=== PATIENT | female | born 1970 | race Caucasian/White ===

== ENCOUNTER 2019-04-02 01:01 | Outpatient (CLI) | payer MEDICAID, SELFPAY ==
--- NOTE | 2019-04-02 14:32 | DI.US_ITS ---
EXAM: US PELVIS AND TRANSVAGINAL CLINICAL HISTORY: HX FIBROIDS UNKNOWN SIZE, PLEASE DETERMINE LOCATION AND SIZE, INCREASE IN URINARY INCONTINENCE TECHNIQUE: Ultrasound performed using standard protocol. Transabdominal and transvaginal exams wer e performed. COMPARISON: No exams were available for comparison FINDINGS: The transabdominal images are limited by an empty bladder. The uterus measures 9.2 x 5 x 5 cm. Ther e is a 2.6 centimeter fibroid seen posteriorly in the myometrium. There is a 2.2 centimeter fibroid seen anteriorly in the myometrium. An IUD is noted within the endometrial cavity and appears normall y positioned. There is a 1.3 centimeter in maximal dimension rounded area within the endometrium, wh ich could represent an endometrial polyp versus submucosal fibroid. The ovaries are unremarkable. N o hydronephrosis is seen. There is no evidence of free fluid. IMPRESSION: IUD. Question of 1.3 centimeter endometrial polyp versus submucosal fibroid. Two other myometrial f ibroids are seen.
== END 2019-04-02 01:21 ==
PROVIDERS: PCP Nurse Practitioner Family; Visit Provider Nurse Practitioner Women's Health
DX: R32 Unspecified urinary incontinence (principal); N84.0 Polyp of corpus uteri; D25.9 Leiomyoma of uterus, unspecified; Z97.5 Presence of (intrauterine) contraceptive device
CPT/HCPCS: 76830; 76856

== ENCOUNTER 2019-10-21 10:06 | Outpatient (REF) | payer MEDICAID, SELFPAY ==
--- NOTE | 2019-10-21 08:45 | PAPFT_PTH ---
PATIENT: Megan Camacho LOC: [facility] U#:[id number] AGE/SX: 48/F ROOM: RE10/21/[address]: Felipe Leiva MD : 1970 BED: DIS: 10/21/2019 SPEC #: [id number] RECD: 10/21/19 12:47 STATUS: SATNAM REQ #: [id number] ERYN: 10/21/19 08:[address]: Felipe Leiva DEPT: [facility] Cytology RECD BY: Sandra Flores ENTERED: 10/21/19 12:47 SP TYPE: PAPFT OTHR DR: Amira Wright Tissues: 1 - CX/ENDOCX FOR PAP SMEARS Procedures: PAP THIN PREP/UVM Screening Comments: [id number] ([facility]LAMYDIA/GC) (UNSATISFACTORY FOR EVALUATION)
[2019-10-22 11:50] LABS: HSV 1 DNA Result Negative (Negative); HSV 2 DNA Result Negative (Negative)
[2019-10-23 13:25] LABS: Chlamydia Result Negative (Negative); GC Result Negative (Negative)
== END 2019-10-21 10:26 ==
LOC: LBN 10:06
PROVIDERS: PCP Nurse Practitioner Family; Visit Provider Obstetrics & Gynecology
DX: N90.89 Other specified noninflammatory disorders of vulva and perineum (principal); N89.8 Other specified noninflammatory disorders of vagina; Z11.59 Encounter for screening for other viral diseases; Z11.3 Encounter for screening for infections with a predominantly sexual mode of transmission; Z12.4 Encounter for screening for malignant neoplasm of cervix; R87.615 Unsatisfactory cytologic smear of cervix
CPT/HCPCS: 87491; 87529; 87591; 88142; 87480; 87510; 87660

== ENCOUNTER 2019-12-09 07:39 | Outpatient (CLI) | payer MEDICAID, SELFPAY ==
[2019-12-11 22:00] LABS: SARS-CoV-2 RNA Undetected (Undetected); SARS-CoV-2 Specimen Source Nasopharynx
== END 2019-12-09 07:59 ==
PROVIDERS: PCP Nurse Practitioner Family; Visit Provider Nurse Practitioner Family
DX: Z11.59 Encounter for screening for other viral diseases (principal)
CPT/HCPCS: U0003

== ENCOUNTER 2020-03-02 11:15 | Outpatient (REF) | payer MEDICAID, SELFPAY ==
--- NOTE | 2020-03-02 10:00 | PAPFT_PTH ---
PATIENT: Megan Camacho LOC: [facility] U#:[id number] AGE/SX: 49/F ROOM: RE03/02/[address]: Felipe Leiva MD : 1970 BED: DIS: 03/02/2020 SPEC #: [id number] RECD: 03/02/20 12:39 STATUS: SATNAM REQ #: [id number] ERYN: 03/02/20 10:[address]: Felipe Leiva DEPT: [facility] Cytology RECD BY: Gabriela Menjivar ENTERED: 03/02/20 12:39 SP TYPE: PAPFT OTHR DR: Amira Wright Tissues: 1 - CX/ENDOCX FOR PAP SMEARS Procedures: PAP THIN PREP/UVM Screening HPV DNA PROBE Comments: [id number] ([facility])
== END 2020-03-02 11:35 ==
LOC: LBN 11:15
PROVIDERS: PCP Nurse Practitioner Family; Visit Provider Obstetrics & Gynecology
DX: Z12.4 Encounter for screening for malignant neoplasm of cervix (principal); Z97.5 Presence of (intrauterine) contraceptive device; Z11.51 Encounter for screening for human papillomavirus (HPV)
CPT/HCPCS: 88142; 87624

== ENCOUNTER 2020-04-16 15:05 | Outpatient (REF) | payer MEDICAID, SELFPAY ==
[2020-04-19 16:06] LABS: COVID-19 RT-PCR UVMMC Result Negative (Negative)
== END 2020-04-16 15:25 ==
LOC: NCHCN 15:05
PROVIDERS: PCP Nurse Practitioner Family; Visit Provider Nurse Practitioner Family
DX: Z20.828 Contact with and (suspected) exposure to other viral communicable diseases (principal)
CPT/HCPCS: U0003

== ENCOUNTER 2022-09-13 01:01 | Outpatient (CLI) | payer MEDICAID, SELFPAY ==
--- NOTE | 2022-09-13 | DI.RAD_ITS ---
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 TECHNIQUE: 2D digital imaging was performed of the right knee. Three views obtained. AP, lateral an d PA tunnel views were obtained. COMPARISON: No exams were available for comparison FINDINGS: BONES: No acute fracture is present. No bony destructive lesion is seen. JOINTS: The knee is normally aligned. There is a small joint effusion. There is mild joint space williams rowing and spurring in the medial femoral tibial joint. SOFT TISSUE: Normal. IMPRESSION: Mild degenerative changes of the knee and small joint effusion. DATA REPOSITORY: RADIATION DOSE DELIVERED:
== END 2022-09-13 01:21 ==
LOC: DI 01:01
PROVIDERS: PCP Nurse Practitioner Family; Visit Provider Internal Medicine
DX: M17.11 Unilateral primary osteoarthritis, right knee (principal); M25.461 Effusion, right knee
CPT/HCPCS: 73562

== ENCOUNTER 2022-10-06 15:36 | Outpatient (REF) | payer MEDICAID, SELFPAY ==
[2022-10-06 21:18] LABS: ESR 8 mm/hr (0-30)
[2022-10-06 21:21] LABS: Abs Immature Grans 0.01 10^3/uL (0.0-0.06); Absolute Basophil Count 0.07 10^3/uL (0.0-0.2); Absolute Eosinophil Count 0.11 10^3/uL (0.0-0.7); Absolute Lymphocyte Count 2.04 10^3/uL (1.2-3.4); Absolute Monocyte Count 0.68 10^3/uL (0.1-0.8); Absolute Neutrophil Count 4.09 10^3/uL (1.2-6.7); Eosinophils % 1.6; HCT 44.6 % (36.0-46.0); HGB 15.2 g/dL (11.2-15.7); Immature Grans % 0.1; Lymphocytes % 29.1; MCH 31.3 pg (27.0-33.0); MCHC 34.1 % (32.0-36.0); MCV 92 fL (80-95); MPV 10.4 fL (8.0-11.0); Monocytes % 9.7; Neutrophils % 58.5; Platelet Count 229 10^3/uL (130-400); RBC 4.86 10^6/uL (3.93-5.22); RDW 12.6 % (11.7-14.6); RDW-SD 42.2 fL
[2022-10-06 21:42] LABS: C-Reactive Protein 0.14 mg/dL (0.0-0.3)
[2022-10-10 12:24] LABS: Lyme Ab w Rflx to Lyme Confirm Equivocal (Negative)
[2022-10-10 14:37] LABS: Lyme IgG Ab Negative (Negative); Lyme IgM Ab Positive (Negative)
== END 2022-10-06 15:37 | disposition home or self-care (01) ==
LOC: NCHCN 15:36
PROVIDERS: PCP Internal Medicine; Visit Provider Internal Medicine
DX: M25.461 Effusion, right knee (principal); A69.29 Other conditions associated with Lyme disease
CPT/HCPCS: 85652; 86617; 85025; 86140; 86618

== ENCOUNTER 2022-11-02 15:45 | Outpatient (REF) | payer MEDICAID, SELFPAY ==
[2022-11-04 11:34] LABS: Lyme Ab w Rflx to Lyme Confirm Equivocal (Negative)
[2022-11-04 13:33] LABS: Lyme IgG Ab Negative (Negative); Lyme IgM Ab Positive (Negative)
[2022-11-06 15:41] LABS: Anaplasma phagocytophilum Negative (Negative); B. miyamotoi PCR Negative (Negative); Babesia divergens/MO-1 Negative (Negative); Babesia duncani Negative (Negative); Babesia microti Negative (Negative); Ehrlichia chaffeensis Negative (Negative); Ehrlichia ewingii/canis Negative (Negative); Ehrlichia muris eauclairensis Negative (Negative)
== END 2022-11-02 15:46 | disposition home or self-care (01) ==
LOC: NCHCN 15:45
PROVIDERS: PCP Internal Medicine; Visit Provider Family Medicine
DX: M25.461 Effusion, right knee (principal)
CPT/HCPCS: 86617; 87798; 86618

== ENCOUNTER 2022-12-20 00:38 | Emergency (ER) | payer MEDICAID, SELFPAY ==
--- NOTE | 2022-12-20 00:45 | DI.CT_ITS ---
Exam(s) CT ABDOMEN PELVIS WO EXAM: CT ABDOMEN PELVIS WO CLINICAL HISTORY: right flank pain, eval for stone. TECHNIQUE: Imaging Protocol: Axial computed tomography images with coronal and sagittal reformatted images were created and reviewed. COMPARISON: No exams were available for comparison FINDINGS: ABDOMEN: Lung Bases: Normal where visualized. Liver: Normal density. No measurable mass. Gallbladder and biliary tract: Cholelithiasis. No biliary ductal dilatation. Pancreas: Normal density, no abnormal calcifications or inflammatory process. Spleen: Normal. Kidneys: Normal size, contour and axis.No stone is identified. There is mild dilatation of the right renal collecting system. There is mild right perinephric and periureteral stranding. No masses see n. Adrenal glands: No mass is seen. Lymph nodes: Within normal limits. Abdominal Aorta: Abdominal portion non-dilated. PELVIS: Bladder:Symmetric distention, no gross wall thickening. Bowel: No obstruction or bowel wall thickening. Appendix is unremarkable. Peritoneal cavity: There is a small amount of free fluid in the pelvis which may be physiologic. No free air. Reproductive organs: Unremarkable as visualized. There is is an IUD in good position. Bones: Within normal limits. Soft Tissues: Within normal limits. IMPRESSION: 1. No nephrolithiasis. 2. Mild dilatation of the right renal collecting system with mild perinephric and periureteral strand ing. This may represent a recently passed stone or infection. RADIATION DOSE DELIVERED: 654.7mGy.cm Total DLP DATA REPOSITORY: All CT scans at this facility are submitted to the National Radiology Data Registry (NRDR) Dose Index Registry (DIR) with the [employer] (ACR). RADIATION OPTIMIZATION: All CT scans at this facility use at least one of these dose optimization te chniques: automated exposure control; mA and/or kV adjustment per patient size (includes targeted exa ms where dose is matched to clinical indication); or iterative reconstruction.
[2022-12-20] MEDS: Ondansetron 4 MG/2 ML VIAL (00:50)
--- NOTE | 2022-12-20 00:54 | ED.GENADUL_ITS ---
Discharge Plan Disposition Patient Disposition: Home Condition: Good Discharge Details Clinical Impression: UTI (urinary tract infection) Primary Care Provider: Duane Williamson ED Provider: Braxton Luz Home Meds and New Rx's Prescriptions: New cephalexin 500 mg capsule 500 mg PO QID 7 Days Qty: 28 0RF tamsulosin [Flomax] 0.4 mg capsule 0.4 mg PO DAILY Qty: 7 0RF No Action cholecalciferol (vitamin D3) 2,000 UNIT tablet 2,000 unit PO Mirena 1 EACH intrauterine device 1 ea Intrauterine ONCE Qty: 1 Rx Instructions: IUD placed today in office Discharge Instructions Instructions: Urinary Tract Infection in Women (ED) Additional Instructions: At this time you have a urinary tract infection. CAT scan and radiologist do not see evidence of a kidney stone. Out of an abundance of precaution it is important to follow-up very closely with Dr. Don this week. That his office will contact you for an appointment time. If you do not hear from them by this afternoon please call them to schedule. Please take the antibiotic as directed as well as the Flomax. If you notice any worsening of your symptoms, or any new symptoms such as vomiting, diarrhea, fever, chills, shortness of breath, chest pain, numbness, weakness, or fainting , please return immediately to the emergency department for reevaluation. Please follow up with your primary care provider as soon as possible for reassessment and reevaluation. As always, it was a pleasure participating in your medical care today. Referrals: Lazaro Don MD [ [facility] STAFF PHYSICIAN] - Duane Williamson MD [Primary Care Provider] - Medical Decision Making 52-year-old female with a past medical history of a Mirena device secondary to dysfunctional uterine bleeding secondary to a leiomyoma, and no other significant past medical history except for a recent cyst/abscess that was incised drained and packed in her right axillary region today, who is not currently on antibiotics, presents today for evaluation of right flank pain. Patient states that for the last few hours she has had persistent right flank pain that comes and goes in severity. She has nausea and vomiting because of this. She denies any numbness or tingling. She does admit to some burning with urination and frequency. She denies any previous symptoms like this in the past. No vaginal discharge. No other complaints at this time. No hemoptysis or hematochezia. No hematemesis. Exam demonstrates right CVA tenderness. Concern for potential kidney stone less likely appendicitis or gallbladder pathology. We will get CT scan, treat the patient's pain, monitor closely and reassess. 6:40 AM Laboratory work-up has returned, patient does have a white count of 16, mild left shift, potassium is low at 3, magnesium slightly low at 1.6. Patient was given IV potassium and IV magnesium to replace these. Lipase normal. Urinalysis shows evidence of leuk esterase with greater than [address] scan shows minimal right perinephric and periureteral stranding which may be related to recent obstruction versus infection. There does appear to be a phlebolith right near the ureterovesicular junction. At this time symptoms are most concerning for UTI, and do not appear to be radiographically consistent with kidney stone. However because of the location of phlebolith, and the patient's initial notable pain, there was certainly heightened concerned initially for UTI. Since the patient was given Toradol and Flomax she has had 0 pain. She has had complete resolution of her symptoms. She feels much better. She has urinated a few times without any pain or difficulty. She has had no more vomiting. She feels well and would like to go home. Because of the concern for potential previous stone, I did contact Dr. Don, we discussed the case together. He would like to follow-up closely with the patient in the next 2 to 3 days for repeat ultrasound to make sure the mild hydroureter resolves. We will prescribe Keflex for home use as well as Flomax out of an abundance of precaution. Patient will be discharged. Discussed red flags for which to return. I have extensively reviewed the treatment plan and discharge instructions with the patient. I have addressed all patient concerns at this time. The patient was made aware of what symptoms to monitor for that would hailey ant a return to the emergency department. Discussed the plan with the patient, they demonstrate verbal understanding and agreement with our assessment and plan at this time. The documentation in this chart was dictated using [employer] dictation software. Please excuse any dictation errors. FINDINGS: Liver: Normal. No mass. Gallbladder and bile ducts: Cholelithiasis. Pancreas: Normal. No ductal dilation. Spleen: Normal. No splenomegaly. Adrenal glands: Normal. No mass. Kidneys and ureters: Minimal right perinephric and Jesica ureteral stranding may be related to sequela of recent obstruction versus infection. Stomach and bowel: Unremarkable. No obstruction. No mucosal thickening. Appendix: No evidence of appendicitis. Intraperitoneal space: Unremarkable. No free air. No significant fluid colle ction. Vasculature: Unremarkable. No abdominal aortic aneurysm. Lymph nodes: Unremarkable. No enlarged lymph nodes. Urinary bladder: Unremarkable as visualized. Reproductive: IUD in place. Bones/joints: Unremarkable. No acute fracture. Soft tissues: Unremarkable. IMPRESSION: Minimal right perinephric and Jesica ureteral stranding may be related to sequela of recent obstruction versus infection. Thank you for allowing us to participate in the care of your patient. Dictated and Authenticated by: Marlon Walker MD 12/20/2022 2:47 AM Eastern Time ([place] & [place]) HPI General Date/Time Provider Initiated Documentation: 12/20/22 00:41 . HPI Narrative: 52-year-old female with a past medical history of a Mirena device secondary to dysfunctional uterine bleeding secondary to a leiomyoma, and no other significant past medical history except for a recent cyst/abscess that was incised drained and packed in her right axillary region today, who is not currently on antibiotics, presents today for evaluation of right flank pain. Patient states that for the last few hours she has had persistent right flank pain that comes and goes in severity. She has nausea and vomiting because of this. She denies any numbness or tingling. She does admit to some burning with urination and frequency. She denies any previous symptoms like this in the past. No vaginal discharge. No other complaints at this time. No hemoptysis or hematochezia. No hematemesis. Related Data Home Medications Medication Instructions Recorded Confirmed cholecalciferol (vitamin D3) 50 2,000 unit PO 07/17/14 03/02/20 mcg (2,000 unit) tablet levonorgestrel 21 mcg/24 hours (8 1 ea intrauterine ONCE #1 implant 07/17/14 12/20/22 yrs) 52 mg intrauterine device (Mirena) cephalexin 500 mg capsule 500 mg PO QID 7 days #28 caps 12/20/22 tamsulosin 0.4 mg capsule (Flomax) 0.4 mg PO DAILY #7 caps 12/20/22 Previous Rx's Medication Instructions Recorded cephalexin 500 mg capsule 500 mg PO QID 7 days #28 caps 12/20/22 tamsulosin 0.4 mg capsule (Flomax) 0.4 mg PO DAILY #7 caps 12/20/22 Allergies Allergy/AdvReac Type Severity Reaction Status Date / Time cyclobenzaprine Allergy Severe SOB, Verified 03/02/20 09:48 [From Flexeril] anxiety,nausea gabapentin Allergy Severe SOB, Verified 03/02/20 09:48 anxiety, nausea Review of Systems All systems reviewed & are unremarkable except as noted in HPI and below PFSH All Active Problems (Updated 12/20/22 @ 06:38 by Braxton Luz DO) UTI (urinary tract infection) (Acute) Screening for malignant neoplasm of cervix (Acute) Routine screening for STI (sexually transmitted infection) (Acute) Inclusion cyst of vulva (Acute) Vaginal discharge (Acute) Labial lesion (Acute) Leiomyoma of uterus (Acute) Endometrial polyp (Acute) Social History Smoking risk assessment performed?: No Do you feel safe at home: Yes Do you feel safe in your relationship?: Yes Exam Narrative Exam Narrative: 1.Const: Well-nourished, Well-developed, appearing stated age 2.Eyes: PERRL, no conjunctival injection, and symmetrical lids. 3.ENT: Atraumatic external nose and ears. Dry MM. Neck: Symmetric, trachea midline, No thyromegaly. 4.CVS: +S1/S2, No murmurs or gallops. Peripheral pulses 2+ and equal in all extremities. Brisk capillary refill in all extremities. 5.RESP: Unlabored respiratory effort. Clear to auscultation bilaterally. No wheezes rales or rhonchi 6.GI: Soft, mild right-sided CVA tenderness. Mild right-sided abdominal achiness on palpation. 7.MSK: Normocephalic/Atraumatic, Extremities w/o deformity or ttp No cyanosis or clubbing, Normal movement of all extremities 8.Skin: Warm, Dry. No rashes or lesions. 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 Sensation grossly intact, no focal neurologic deficits. 10.Psych: (AAO) x3. Appropriate mood and affect
[2022-12-20 01:00] VITALS: BP 96/71; PULSE 54; RESP 14; O2SAT 100
[2022-12-20] MEDS: Ketorolac 15 MG/ML VIAL IVP (01:11)
[2022-12-20] MEDS: Normal Saline 1,000 ML 1000 ML IV (01:12)
[2022-12-20 01:13] LABS: Abs Immature Grans 0.07 10^3/uL (0.0-0.06); Absolute Basophil Count 0.08 10^3/uL (0.0-0.2); Absolute Eosinophil Count 0.03 10^3/uL (0.0-0.7); Absolute Lymphocyte Count 1.06 10^3/uL (1.2-3.4); Absolute Monocyte Count 1.37 10^3/uL (0.1-0.8); Absolute Neutrophil Count 14.26 10^3/uL (1.2-6.7); Basophils % 0.5; Eosinophils % 0.2; HCT 43.2 % (36.0-46.0); HGB 15.1 g/dL (11.2-15.7); Immature Grans % 0.4; Lymphocytes % 6.3; MCH 30.8 pg (27.0-33.0); MCV 88 fL (80-95); MPV 10.1 fL (8.0-11.0); Monocytes % 8.1; Neutrophils % 84.5; Platelet Count 267 10^3/uL (130-400); RDW 12.4 % (11.7-14.6); RDW-SD 40.5 fL; WBC 16.87 10^3/uL (4.4-10.8)
[2022-12-20 01:28] LABS: ALT 30 U/L (14-59); AST 18 U/L (15-37); Albumin 4.2 g/dL (3.4-5.0); Alkaline Phosphatase 103 U/L (46-116); Anion Gap 16.1 mmol/L (3-11); BUN 10 mg/dL (7-18); Bilirubin, Total 0.5 mg/dL (0.2-1.0); CO2 20.9 mmol/L (21.0-32.0); CREATININE 0.9 mg/dL (0.55-1.02); Calcium 9.5 mg/dL (8.5-10.1); Chloride 99 mmol/L (98-107); Estimated GFR 76.92 (mL/min/1.73m2); Glucose 152 mg/dL (74-106); Lipase 42 U/L (16-77); Sodium 136 mmol/L (136-145)
[2022-12-20 02:05] LABS: Magnesium 1.6 mg/dL (1.8-2.4)
[2022-12-20 02:14] LABS: Bilirubin Negative (Negative); Blood Small (Negative); Clarity Sl Cloudy (Clear); Glucose Negative (Negative); Ketones 15 mg/dL (Negative); Leukocyte Esterase Small (Negative); Nitrite Negative (Negative); Urobilinogen 0.2 mg/dL (Up to 0.2); pH 8.5 (5-8)
[2022-12-20 02:30] LABS: WBC >50 HPF (0-5)
[2022-12-20 02:31] LABS: Bacteria Moderate HPF (Negative); C & S Indicated? Yes; Crystals Negative HPF (Negative); Epithelial Cells Few HPF (Negative); Mucus Trace (Negative)
--- NOTE | 2022-12-20 02:47 | DI.VRAD_ITS ---
PROCEDURE INFORMATION: Exam: CT Abdomen And Pelvis Without Contrast Exam date and time: 12/20/2022 2:23 AM Age: 52 years old Clinical indication: Vomiting and other: R flank pain; Patient HX: R flank pain, eval for stone TECHNIQUE: Imaging protocol: Computed tomography of the abdomen and pelvis without contrast. Radiation optimization: All CT scans at this facility use at least one of these dose optimization techniques: automated exposure control; mA and/or kV adjustment per patient size (includes targeted exams where dose is matched to clinical indication); or iterative reconstruction. COMPARISON: US PELVIS TRANSVAGINAL 04/02/2019 2:32 PM FINDINGS: Liver: Normal. No mass. Gallbladder and bile ducts: Cholelithiasis. Pancreas: Normal. No ductal dilation. Spleen: Normal. No splenomegaly. Adrenal glands: Normal. No mass. Kidneys and ureters: Minimal right perinephric and Jesica ureteral stranding may be related to sequela of recent obstruction versus infection. Stomach and bowel: Unremarkable. No obstruction. No mucosal thickening. Appendix: No evidence of appendicitis. Intraperitoneal space: Unremarkable. No free air. No significant fluid collection. Vasculature: Unremarkable. No abdominal aortic aneurysm. Lymph nodes: Unremarkable. No enlarged lymph nodes. Urinary bladder: Unremarkable as visualized. Reproductive: IUD in place. Bones/joints: Unremarkable. No acute fracture. Soft tissues: Unremarkable. IMPRESSION: Minimal right perinephric and Jesica ureteral stranding may be related to sequela of recent obstruction versus infection. Dictated and Authenticated by: Marlon Walker MD. Ordering:ROSALEE Limon MD
[2022-12-20] MEDS: POTASSIUM CHLORIDE 20 MEQ/100 ML BAG 50 MEQ IVPB (02:50)
[2022-12-20] MEDS: MAGNESIUM SULFATE 2 GM/50 ML BAG IVPB (02:50)
[2022-12-20] MEDS: CEFEPIME 2 GM in Normal Saline 100 ML IVPB (04:06)
[2022-12-20] MEDS: Tamsulosin 0.4 MG CAPCR PO (04:06)
[2022-12-20 06:44] VITALS: BP 110/72; PULSE 62; RESP 15; O2SAT 99
== END 2022-12-20 06:48 | disposition home or self-care (01) ==
PROVIDERS: Emergency Provider Student in an Organized Health Care Education/Training Program; PCP Internal Medicine
DX: R10.9 Unspecified abdominal pain; N39.0 Urinary tract infection, site not specified; Z98.890 Other specified postprocedural states; E87.6 Hypokalemia; Z97.5 Presence of (intrauterine) contraceptive device
CPT/HCPCS: 80053; 81025; 83690; 87077; 96361; 96365; 96366; 96368; 99285; 74176; 81003; 81015; 83735; 85025; 87086; 87186; 99284; J1885; J2405; J3480

== ENCOUNTER 2023-01-24 11:33 | Outpatient (REF) | payer MEDICAID, SELFPAY ==
[2023-01-24 15:35] LABS: Anion Gap 8.3 mmol/L (3-11); BUN 12 mg/dL (7-18); CO2 27.7 mmol/L (21.0-32.0); CREATININE 0.7 mg/dL (0.55-1.02); Calcium 9.6 mg/dL (8.5-10.1); Calculated LDL 117 mg/dL (<100); Chloride 104 mmol/L (98-107); Cholesterol 189 mg/dL (<200); Glucose 88 mg/dL (74-106); HDL Cholesterol 63 mg/dL (40-60); Potassium 4.3 mmol/L (3.5-5.1); Sodium 140 mmol/L (136-145); Triglyceride 46 mg/dL (<150)
== END 2023-01-24 11:34 | disposition home or self-care (01) ==
LOC: NCHCN 11:33
PROVIDERS: PCP Internal Medicine; Visit Provider Family Medicine
DX: M17.9 Osteoarthritis of knee, unspecified (principal); N93.8 Other specified abnormal uterine and vaginal bleeding; F17.209 Nicotine dependence, unspecified, with unspecified nicotine-induced disorders; Z00.00 Encounter for general adult medical examination without abnormal findings
CPT/HCPCS: 80048; 80061; 83735

== ENCOUNTER 2023-09-27 22:51 | Emergency (ER) | payer MEDICAID, SELFPAY ==
--- NOTE | 2023-09-27 22:45 | RT.EKG_ITS ---
APPROVED REPORT Exam: Resting ECG Reason for Exam: N/V Patient Location: E HR:84 bpm ECG Measurements Heart Rate 84 AXIS [place] 145 P 76 QRSd 109 QRS 86 QT 401 T -5 QTc 474 Conclusion Sinus rhythm...normal P axis, V-rate 60- 99 Nonspecific T abnormalities, inferior leads...T <-0.10mV, II III aVF ST elev, probable normal early repol pattern...ST elevation, age<55 Physician: no stemi
[2023-09-27 22:52] VITALS: BP 141/93; PULSE 69; RESP 20; O2SAT 100
[2023-09-27] MEDS: Ondansetron 4 MG/2 ML VIAL IVP (23:24)
[2023-09-27] MEDS: Ketorolac 15 MG/ML VIAL IVP (23:24)
[2023-09-27] MEDS: MORPHine 4 MG/ML SYR IVP (23:24)
[2023-09-27] MEDS: Lactated Ringers 1,000 ML 1000 ML IV (23:25)
--- NOTE | 2023-09-27 23:33 | ED.GENADUL_ITS ---
Discharge Plan Disposition Patient Disposition: Home Condition: Good Discharge Details Clinical Impression: Nausea & vomiting, Dehydration Primary Care Provider: Duane Williamson ED Provider: Braxton Luz Home Meds and New Rx's Prescriptions: No Action cholecalciferol (vitamin D3) 2,000 UNIT tablet 2,000 unit PO DAILY Mirena 1 EACH intrauterine device 1 ea Intrauterine ONCE Qty: 1 Rx Instructions: IUD placed today in office Discharge Instructions Instructions: Dehydration (ED), Acute Nausea and Vomiting (ED) Additional Instructions: At this time your laboratory workup has returned reassuring. Please drink plenty of fluids and stay well-hydrated. Please take the Zofran as needed for nausea. If you notice any worsening of your symptoms, or any new symptoms such as vomiting, diarrhea, fever, chills, shortness of breath, chest pain, numbness, weakness, or fainting , please return immediately to the emergency department for reevaluation. Please follow up with your primary care provider as soon as possible for reassessment and reevaluation. As always, it was a pleasure participating in your medical care today. Referrals: Duane Williamson MD [Primary Care Provider] - [facility] General Date/Time Provider Initiated Documentation: 09/27/23 22:57 . HPI Narrative: 52-year-old female with a past medical history of a leiomyoma of the uterus, presents today for evaluation of diaphragm pain. Patient states that about 2 to 3 hours ago she developed significant pain in the epigastric diaphragmatic region. It is sharp achy and crampy in nature. She has had multiple episodes of vomiting since then. No blood in her vomitus. She admits to chills. Some radiation to the left flank. She denies shortness of breath or chest pain. No diarrhea. No other complaints. Patient had similar symptoms about a year ago when she had a notable urinary tract infection. She denies any recent dysuria or hematuria. No other complaints at this time. She did have some recent significant social stressors with the of her mother just a few days ago. She denies any recent alcohol intake. No other complaints at this time. Related Data Home Medications Medication Instructions Recorded Confirmed cholecalciferol (vitamin D3) 50 2,000 unit PO DAILY 07/17/14 09/27/23 mcg (2,000 unit) tablet levonorgestrel 21 mcg/24 hr (up to 1 ea intrauterine ONCE #1 implant 07/17/14 09/27/23 8 years) 52 mg intrauterine device (Mirena) Allergies Allergy/AdvReac Type Severity Reaction Status Date / Time cyclobenzaprine Allergy Severe SOB, Verified 09/27/23 22:58 [From Flexeril] anxiety,nausea gabapentin Allergy Severe SOB, Verified 09/27/23 22:58 anxiety, nausea General Stated Complaint: Nausea/Vomit/Diar PINKY: 3 Review of Systems All systems reviewed & are unremarkable except as noted in HPI and below Exam Narrative Exam Narrative: 1.Const: Well-nourished, Well-developed, appearing stated age 2.Eyes: PERRL, no conjunctival injection, and symmetrical lids. 3.ENT: Atraumatic external nose and ears. Dry MM. Neck: Symmetric, trachea midline, No thyromegaly. 4.CVS: +S1/S2, No murmurs or gallops. Peripheral pulses 2+ and equal in all extremities. Brisk capillary refill in all extremities. 5.RESP: Unlabored respiratory effort. Clear to auscultation bilaterally. No wheezes rales or rhonchi 6.GI: Soft, nondistended. No guarding, no rebound. Generalized tenderness throughout on palpation. No focal pain to McBurney's point, negative Sarmiento sign. Mild left CVA tenderness 7.MSK: Normocephalic/Atraumatic, Extremities w/o deformity or ttp No cyanosis or clubbing, Normal movement of all extremities 8.Skin: Warm, Dry. No rashes or lesions. 9.Neuro: medical liaison II-XII grossly intact. Sensation grossly intact, no focal neurologic deficits. 10.Psych: (AAO) x3. Appropriate mood and affect Course Vital Signs Vital signs: Vital Signs Pulse 69 09/27/23 22:52 Respiratory Rate 20 09/27/23 22:52 Blood Pressure 141/93 H 09/27/23 22:52 Pulse Oximetry 100 09/27/23 22:52 Pulse 69 09/27/23 22:52 Respiratory Rate 20 09/27/23 22:52 Respiratory Effort Normal, Non-Labored 09/27/23 22:58 Blood Pressure 141/93 H 09/27/23 22:52 Pulse Oximetry 100 09/27/23 22:52 Oxygen Delivery Method Room Air 09/27/23 22:52 Oxygen Flow Rate 0 09/27/23 22:52 Pain Level 10 09/27/23 22:52 Medical Decision Making 52-year-old female with a past medical history of a leiomyoma of the uterus, presents today for evaluation of diaphragm pain. Patient states that about 2 to 3 hours ago she developed significant pain in the epigastric diaphragmatic region. It is sharp achy and crampy in nature. She has had multiple episodes of vomiting since then. No blood in her vomitus. She admits to chills. Some radiation to the left flank. She denies shortness of breath or chest pain. No diarrhea. No other complaints. Patient had similar symptoms about a year ago when she had a notable urinary tract infection. She denies any recent dysuria or hematuria. No other complaints at this time. She did have some recent significant social stressors with the of her mother just a few days ago. She denies any recent alcohol intake. No other complaints at this t chito. Exam demonstrates a slightly in distress patient. She is contorting herself into very unique positions to find comfort/position of ease. Mild generalized abdominal pain in the epigastric region. Mild left CVA tenderness. Vital signs are stable, no tachycardia. Blood pressure stable. Differential is broad but includes pancreatitis, kidney stone, pyelonephritis/UTI. Symptoms appear inco nsistent with dissection or ACS with her symmetric pulses, stable vital signs, and no concerning red flag history in that regard. Will treat the patient's pain, evaluate for these concerning etiologies, rehydrate with lactated Ringer's, monitor closely and reassess. 1:14 AM Laboratory workup has returned, minimal white count of 13, normal electrolytes, renal function normal, lipase normal, troponin EKG normal. Urinalysis shows evidence of mild dehydration with some ketones, no evidence of infection. On reassessment patient feels much better, symptoms have completely resolved, she feels well and would like to go home. She has been rehydrated with a liter of lactated Ringer's. Patient notably stable, vital signs remained stable. No flank or abdominal or CVA tenderness. Symptoms inconsistent with urolithiasis, pyelonephritis, appendicitis, ACS, or pancreatitis. Potential mild gastroenteritis brought about initial symptoms, however stress of the last day or so could certainly be a contributing component. Current exam shows no evidence of acute life-threatening etiology otherwise.'s patient stable for discharge. Discussed red flags which to return. Will give a small bottle of Zofran to go from use. I have extensively reviewed the treatment plan and discharge instructions with the patient. I have addressed all patient concerns at this time. The patient was made aware of what symptoms to monitor for that would warrant a return to the emergency department. Discussed the plan with the patient, they demonstrate verbal understanding and agreement with our assessment and plan at this time. The documentation in this chart was dictated using [employer] dictation software. Please excuse any dictation errors. Quality:SDOH Health Related Social Needs: No Data to Display PFSH All Active Problems (Updated 09/28/23 @ 00:52 by Braxton Luz DO) Dehydration (Acute) Nausea & vomiting (Acute) Screening for malignant neoplasm of cervix (Acute) Routine screening for STI (sexually transmitted infection) (Acute) Inclusion cyst of vulva (Acute) Vaginal discharge (Acute) Labial lesion (Acute) Leiomyoma of uterus (Acute) Endometrial polyp (Acute) Social History Smoking/Tobacco Use Status: Current every day Tobacco Type: cigarettes Smoking risk assessment performed?: Yes Alcohol Intake: current Alcohol Intake frequency: holidays/special occasions only Drug use: Daily Substance use type: marijuana Do you feel safe at home: Yes Do you feel safe in your relationship?: Yes
[2023-09-27 23:34] LABS: Abs Immature Grans 0.04 10^3/uL (0.0-0.06); Absolute Basophil Count 0.11 10^3/uL (0.0-0.2); Absolute Eosinophil Count 0.11 10^3/uL (0.0-0.7); Basophils % 0.8 %; Eosinophils % 0.8 %; HCT 44.8 % (36.0-46.0); HGB 15.4 g/dL (11.2-15.7); Immature Grans % 0.3 %; MCH 30.8 pg (27.0-33.0); MCHC 34.4 % (32.0-36.0); MCV 90 fL (80-95); MPV 9.9 fL (8.0-11.0); Monocytes % 5.6 %; Neutrophils % 73.5 %; Platelet Count 238 10^3/uL (130-400); RDW 12.7 % (11.7-14.6); RDW-SD 42.2 fL; WBC 13.13 10^3/uL (4.4-10.8)
[2023-09-27 23:36] LABS: Absolute Lymphocyte Count 2.49 10^3/uL (1.2-3.4); Absolute Monocyte Count 0.74 10^3/uL (0.1-0.8); Absolute Neutrophil Count 9.65 10^3/uL (1.2-6.7)
[2023-09-27 23:52] LABS: ALT 31 U/L (14-59); AST 21 U/L (15-37); Albumin 4.6 g/dL (3.4-5.0); Alkaline Phosphatase 95 U/L (46-116); Anion Gap 14.7 mmol/L (3-11); BUN 17 mg/dL (7-18); Bilirubin, Total 0.5 mg/dL (0.2-1.0); CO2 24.3 mmol/L (21.0-32.0); Chloride 101 mmol/L (98-107); Estimated GFR 67.78 (mL/min/1.73m2); Glucose 143 mg/dL (74-106); Lipase 43 U/L (16-77); Potassium 3.4 mmol/L (3.5-5.1); Sodium 140 mmol/L (136-145); Total Protein 8.2 g/dL (6.4-8.2); Troponin I < 50 ng/L (< or =60)
[2023-09-28 00:28] LABS: Bilirubin Negative (Negative); Blood Negative (Negative); Clarity Sl Cloudy (Clear); Glucose Negative (Negative); Ketones 80 mg/dL (Negative); Leukocyte Esterase Negative (Negative); Nitrite Negative (Negative); Urobilinogen 0.2 mg/dL (Up to 0.2); pH >= 9.0 (5-8)
[2023-09-28 00:34] LABS: Bacteria Rare HPF (Negative); Crystals Negative HPF (Negative); Epithelial Cells Rare HPF (Negative); Mucus Negative (Negative); RBC 0-2 HPF (0-2); WBC 0-2 HPF (0-5)
[2023-09-28 00:35] LABS: C & S Indicated? No
[2023-09-28] MEDS: Ondansetron O.D.T. 4 MG TABEF, 3 TABS/BTL PO (01:06)
[2023-09-28 01:10] VITALS: BP 124/77; PULSE 68; RESP 18; O2SAT 99
== END 2023-09-28 01:06 | disposition home or self-care (01) ==
PROVIDERS: Emergency Provider Student in an Organized Health Care Education/Training Program; PCP Internal Medicine
DX: R10.13 Epigastric pain (principal); R11.10 Vomiting, unspecified; E86.0 Dehydration; F17.210 Nicotine dependence, cigarettes, uncomplicated
CPT/HCPCS: 80053; 83690; 93005; 96360; 99284; 81003; 81015; 84484; 85025; 93010; 99283; J1885; J2270; J2405